=== PATIENT | female | born 1960 | race Caucasian/White ===

== ENCOUNTER → 2023-09-01 14:45 | Outpatient (REF) | payer OTHER, SELFPAY | LOC: HWRAD 14:45 | PROVIDERS: ATTENDING PHYSICIAN Nurse Practitioner | DX: M54.50 Low back pain, unspecified (principal) | CPT/HCPCS: 72110 ==

== ENCOUNTER → 2023-09-08 10:58 | Outpatient (REF) | payer OTHER, SELFPAY | LOC: HWRAD 10:58 | PROVIDERS: ATTENDING PHYSICIAN Nurse Practitioner | DX: K52.9 Noninfective gastroenteritis and colitis, unspecified (principal) | CPT/HCPCS: 74018 ==

== ENCOUNTER 2023-09-09 19:41 | Inpatient (IN) | payer OTHER, SELFPAY ==
[2023-09-09 15:03] VITALS: BP 100/70
--- NOTE | 2023-09-09 15:25 | ED.GENMED ---
History of Present Illness
General
Chief Complaint: Abdominal Symptoms
Source: patient
Exam Limitations: none
Time Seen by Provider: 09/09/23 15:06
Travel History
Have you had any contact with someone who has COVID-19?: No
Do you have any symptoms of coronavirus? Fever > 100 degrees, chills, cough, shortness of breath, sore throat, loss of taste or smell, muscle aches, or headache?: No
History of Present Illness
History of Present Illness:
63 year old female presents with 3-4 days of mid and left abdominal pain with vomiting. No change in bowel movements. No chest pain or shortness of breath. The pain is made worse with eating. She has a prior history of cholecystectomy. She
denies any dark or tarry stools. No known sick contacts. She does not drink alcohol regularly. She does not use NSAIDs regularly. She drinks a cup or 2 of coffee daily. She was thought to have gastritis by her family doctor. Symptoms are not
getting better
Past History
Past History
ED Past Medical History: Hypothyroidism and Psychiatric
ED Past Surgical History: Cholecystectomy, and Other (hernia surgeries/)
Patient has exhibited threatening behavior?: No
PSI?: No
Social History
Tobacco: Non-smoker
Alcohol: Occasional
Personal:
Living: with family
Phy Exam
Physical Exam
Physical Exam:
General: Well-appearing female no acute respiratory distress
HEENT: Normocephalic atraumatic
Heart: Regular rate and rhythm no murmurs
Lungs: Clear to auscultation bilaterally no wheezing
Abdomen: Soft tender to the mid and left mid abdomen. No guarding rebound normal bowel sounds negative Velasco sign no costovertebral angle tenderness.
Extremities: No cyanosis
Course
Orders/Labs/Results
Orders:
Orders
09/09/23 15:23
0.9% Sodium Chloride 1000 ml [Nss] 1,000 ml IV BOLUS
Ondansetron Injectable [Zofran] 4 mg IV NOW STA
09/09/23 15:25
CT Abd/pelvis W Iv Cont Urgent
Comment:
Reason For Exam: abdominal pain
09/09/23 15:35
Complete Blood Count/With Diff Urgent
Comprehensive Metabolic Panel Urgent
Lipase Urgent
09/09/23 16:24
Urinalysis Reflex To Culture Urgent
Date Specimen was Collected: 09/09/23
Time Specimen was Collected: 16:22
Urine Microscopic Reflex Cult Urgent
Urine Culture Urgent
BENJA Source: U
Specimen Description:
Date Specimen was Collected: 09/09/23
Time Specimen was Collected: 16:22
09/09/23 18:25
CefTRIAXone [Rocephin] 1,000 mg IV NOW STA
Famotidine [Pepcid] 20 mg IV NOW STA
Ondansetron Injectable [Zofran] 4 mg IV NOW STA
Abnormal Lab Results
09/09/23 09/09/23
15:35 16:24
WBC 17.4 H 10^3/uL
(4.8-10.8)
RBC 5.49 H 10^6/uL
(4.20-5.40)
Hgb 16.1 H g/dL
(12.0-16.0)
Abs Immat Gran (auto) 0.1 H 10^3/uL
(0-0.05)
Absolute Neuts (auto) 14.2 H 10^3/uL
(1.4-6.5)
Absolute Monos (auto) 1.3 H 10^3/uL
(0.1-0.6)
Neutrophils % 81.7 H %
(42.2-75.2)
Lymphocytes % 9.8 L %
(20.5-51.1)
Sodium 131 L mmol/L
(135-145)
BUN 20 H mg/dl
(7-17)
Glucose 140 H mg/dl
(70-99)
Urine Ketones 3+ A
(Negative)
Ur Occult Blood Reflex 4+ A
(Negative)
Urine Nitrite (Reflex) Positive A
(Negative)
Urine Bilirubin 1+ A
(Negative)
Leukocyte Esterase Rfl 1+ A
(Negative)
Urine Bacteria (Reflex) Many A
(Negative)
Urine Albumin (Reflex) 1+ A
(Neg - Trace)
09/09/23 15:35
09/09/23 15:35
Vital Signs
Initial and Last Documented VS:
Initial Vital Signs
Temp Pulse Resp BP Pulse Ox
99.2 F 100 16 100/70 100
09/09/23 15:03 09/09/23 15:03 09/09/23 15:03 09/09/23 15:03 09/09/23 15:03
Last Documented Vital Signs
Temp Pulse Resp BP Pulse Ox
99.2 F 100 16 100/70 100
09/09/23 15:03 09/09/23 15:03 09/09/23 15:03 09/09/23 15:03 09/09/23 15:03
MDM/Problems Addressed
Differential Diagnosis Includes:
Abdominal pain with vomiting differential could include gastritis versus viral illness. She is slightly tender to the left abdomen. Consider diverticulitis. Check lipase for pancreatitis. Will check labs treat symptoms CT pending
*Critical Care Note
Total Time (30-74mins, 75-104mins- exclusive of procedures): Not Applicable
Update Note
Update Note:
White blood cell count was 17,000. CT scan shows no obvious acute finding. Urinalysis nitrite positive with bacteria and white blood cells. Suspect underlying UTI. Pepcid given. H2 blockers, has an allergy but this is an unknown allergy.
Patient states she took Pepcid not too long ago without any adverse reaction. Will start Rocephin. Patient having difficulty tolerating p.o. not a great candidate for discharge home will admit
ED Attending Note
-
Portions of this chart may have been created with voice recognition software.� Occasional wrong word or��sound alike� substitutions may have occurred due to the inherent limitations of voice recognition software.
Discharge Plan
Departure
Patient Disposition: Admit
Date of Disposition: 09/09/23
Time of Disposition: 18:28
Admit to: Med/Surg
Presentation/result/management discussed w/ accepting MD/DO: Hospitalist
Discharge Problem:
UTI (urinary tract infection)
Prescriptions:
No Action
clonazepam 0.5 MG tablet
0.5 mg PO Q6HPRN PRN (Reason: anxiety)
citalopram 20 MG tablet
40 mg PO DAILY
levothyroxine 50 MCG tablet
50 mcg PO DAILY
cephalexin 250 MG/5 ML suspension for reconstitution
10 ml PO QID
ondansetron 4 MG tablet,disintegrating
4 mg PO Q8 Qty: 10 0RF
Rx Instructions:
nausea
Referrals:
Qi Villegas CRNP [Family Provider] -
Interventions
Interventions:
*Risk Screen - Suicide Last Done: 09/09/23 15:38
*General Assessment Last Done: 09/09/23 15:38
*Neglect/Abuse Screening Last Done: 09/09/23 15:38
*ED COVID-19 Vaccine History Last Done: 09/09/23 15:03
YX-Llfiac-Opzqaxutic Assessment Last Done: 09/09/23 15:38
[2023-09-09] MEDS: NSS 1000 IV ×2 (15:35→20:55)
[2023-09-09] MEDS: ZOFRAN 4 MG IV ×2 (15:35→18:32)
[2023-09-09 15:37] VITALS: BMI 38.0
[2023-09-09 15:52] LABS: % Basophils 0.5 % (0-2); % Immature Granulocytes 0.4 % (0-0.5); % Lymphocytes 9.8 % (20.5-51.1); % Monocytes 7.6 % (1.7-9.3); % Neutrophils 81.7 % (42.2-75.2); Absolute Basophils 0.1 10^3/uL (0-0.2); Absolute Immature Granulocytes 0.1 10^3/uL (0-0.05); Absolute Lymphocytes 1.7 10^3/uL (1.2-3.4); Absolute Monocytes 1.3 10^3/uL (0.1-0.6); Absolute Neutrophils 14.2 10^3/uL (1.4-6.5); Hematocrit 46.4 % (37.0-47.0); Hemoglobin 16.1 g/dL (12.0-16.0); Mean Corp Hgb Conc. 34.7 g/dL (33.0-37.0); Mean Corpuscular Hgb 29.3 pg (27.0-31.0); Mean Corpuscular Volume 84.5 fL (81.0-99.0); Mean Platelet Volume 10.4 fL (7.4-10.4); Nucleated Red Blood Cells % 0 %; Platelet Count 269 10^3/uL (130-400); Red Blood Cell Count 5.49 10^6/uL (4.20-5.40); White Blood Cell Count 17.4 10^3/uL (4.8-10.8)
[2023-09-09 16:03] LABS: ALT (SGPT) 29 U/L (0-35); AST (SGOT) 34 U/L (14-36); Albumin 4.2 g/dl (3.5-5.0); Alkaline Phosphatase 112 U/L (38-126); Blood Urea Nitrogen 20 mg/dl (7-17); Calcium 9.6 mg/dl (8.4-10.2); Carbon Dioxide 25 mmol/L (22-30); Chloride 98 mmol/L (98-107); Estimated Creatinine Clearance 97 ml/min; Glucose 140 mg/dl (70-99); Lipase 202 U/L (23-300); Potassium 3.6 mmol/L (3.5-5.1); Sodium 131 mmol/L (135-145); Total Bilirubin 1.2 mg/dl (0.2-1.3); Total Protein 7.1 g/dl (6.3-8.2); eGFR > 60.00
[2023-09-09 16:37] LABS: Urine Albumin 1+ (Neg - Trace); Urine Bilirubin 1+ (Negative); Urine Character Very Cloudy (Clear); Urine Color Yellow; Urine Glucose Negative (Negative); Urine Ketone 3+ (Negative); Urine Leukocyte 1+ (Negative); Urine Nitrite Positive (Negative); Urine Occult Blood 4+ (Negative); Urine Specific Gravity 1.025 (<1.030); Urine Urobilinogen 1+ (Neg - 1+)
[2023-09-09 16:45] LABS: Urine Bacteria Many (Negative); Urine Red Blood Cell 0-2 /HPF (0-2)
[2023-09-09] MEDS: PEPCID 20 MG IV (18:32)
[2023-09-09] MEDS: ROCEPHIN 1000 MG IV (18:32)
--- NOTE | 2023-09-09 18:32 | HPS.HSE ---
Addendum entered and electronically signed by Juana Garcia DO 09/09/23 19:55:
I saw and examined the patient.
The DRIVER LICENSE AGENT's note was reviewed and I agree with the note.
Subjective
63 yo F with PMH/SHx Hypothyroidism, Depression, Remote Abdominoplasty/Cholecystectomy/C-sectionx2/Hysterectomy presents to ER with c/o LLQ and Left Flank/Bank Pain. She reports 2 weeks ago bending forward and spraining her back R>L Hip. Started on
muscle relaxer and medrol with initial improvement. Wed Night however developped Nausea and dry heaving with worsening left flank/bank pain. Tmax 102.2 at on Wednesday. Denies recent UTIs or recent abx. +Chills. Denies dizziness/LH, Cp, palps,
wheezing, sob, dysuria, calf or leg pain/swelling.
ER course: Pt presents HR 100, T 99.2, other V.S.S. WBC 17.4K, Na 131, BUN/Cr 20/0.7, Glu 140. LFTs wnl, Lipase 202, UA 6-10 WBC, 1+ LE, +Nitrite, +Many bact. S/P Rocephin, 20mg IV Pepcid, 2LNS Bolus, and 4mg IV zofranx2.
Physical Exam
General: Mild Discomfort, AAOX3, Following commands
Neck: Negative JVD
Heart: Normal S1,S2 no S3 or S4 or murmur or gallops
Lungs: CTA b/l, negative wheezes/rales/rhonchi
Abd: Positive BS, Nondistended. +TTP LLQ, Left Flank.
MSK: no midline back tenderness.
Ext: Negative cyanosis/clubbing/edema
Neuro: nonfocal
Assessment and Plan
Abdominal Pain
- Likely 2/2 UTI, see plan below.
- LFTs wnl. Lipase 202, will repeat for tomorrow.
- CT abdomen pelvis with Cannot exclude small hiatal hernia. Sigmoid diverticulosis.Unremarkable appendix. No intestinal obstruction or free air.Small left lobe hepatic cyst simple cyst again seen. Small splenic cyst seen on prior study, no longer
identified.Subcentimeter low-attenuation left renal lesion too small to characterize.Prior cholecystectomy.
- Prn analgesics, Prn Antiemetics, IVF
- Will trial full liquids and ADAT
UTI - Tmax 102.2 at home. 99.2 on admission. WBC 17.4K. Leukocytosis may be confounded by recent steroids (now on hold). Continue rocephin. Follow up UCx. Monitor abdominal exams.
Hyponatremia - Mild. Likely hypoosmotic hypovolemic etiology in setting of dec po intake and dehydration. Continue NS @ 80cc/hr and trend, goal 6-8meq/24hr. Also mild pseudhyponatremia component 2/2 hyperglycemia.
Hypothyroidism - stable on synthroid. Consider checking TSH if hyponatremia unimproved.
Depression - stable on zoloft.
PPx - Lovenox
Code Status: Full Code
Original Note:
Family Physician
-
Family Physician: CARRIE Rob
Chief Complaint
-
abdominal pain
nausea, vomiting
History of Present Illness
63 year old with PMH for hypothyroidism presented to us with constant mid abdominal pain radiating to left flank associated with nausea and vomiting since Wednesday night. patient not tolerating any oral intake. vomiting bile. evaluated by family, who
recommended rest. denied any diarrhea. stated fever of 102 at home which broke by itself. stated GOMES. denied dizzy or syncopal episode. denied chest pain, sob. denied dysuria or hematuria.
CT abdomen pelvis negative. positive UA. initiated on iv ceftriaxone. admitting for further management
she was on medrol pack for back pain, she stopped taking last Wednesday due to abdominal pain, n,v,.
Medical History
Past Medical History
Past Medical History: Reports Other
Additional Past Medical History:
hypothyroidism
Past Surgical History: Reports Other
Additional Past Surgical History:
cholecystectomy
c section
hernia surgery
Tummy Tuck
Social History
Tobacco: Non-smoker
Alcohol: Occasional
Drug: None
Personal:
Living: With Family
Employment: Employed
Family History
Family History: Not pertinent
Allergies / Home Medications
Allergies reflects when Allergies were last updated in [facility].
Home Medications with original date entered in [facility]
Allergy/Medication List:
Allergies
Allergy/AdvReac Type Severity Reaction Status Date / Time
codeine Allergy Unknown Verified 09/09/23 15:05
cortisone Allergy Unknown Verified 09/09/23 15:05
dimenhydrinate Allergy Unknown Verified 09/09/23 15:05
erythromycin base Allergy Unknown Verified 09/09/23 15:05
Histamine H2 Inhibitors Allergy Unknown Verified 09/09/23 15:05
latex Allergy Unknown Verified 09/09/23 15:05
penicillin G Allergy Unknown Verified 09/09/23 15:05
Penicillins Allergy Unknown Verified 09/09/23 15:05
Sulfa (Sulfonamide Allergy Unknown Verified 09/09/23 15:05
Antibiotics)
sulfamethoxazole Allergy Unknown Verified 09/09/23 15:05
tetracycline Allergy Unknown Verified 09/09/23 15:05
trimethoprim Allergy Unknown Verified 09/09/23 15:05
[id number] - Not Allergy Unknown Uncoded 09/09/23 15:05
Converted 7. See Text.
Review of Systems
-
Constitutional: Reports No Symptoms
EENT: Reports No Symptoms
Respiratory: Reports No Symptoms
Cardiac: Reports No Symptoms
Abdomen/GI: Reports Abdominal Pain, Nausea and Vomiting
: Reports No Symptoms
Musculoskeletal: Reports No Symptoms
Skin: Reports No Symptoms
Neurological: Reports No Symptoms
Endocrine: Reports No Symptoms
Hematologic/Lymphatic: Reports No Symptoms
Psych: Reports No Symptoms
Physical Exam
Vital Signs
Vital Signs
Temp Pulse Resp BP Pulse Ox
99.2 F 100 16 100/70 100
09/09/23 15:03 09/09/23 15:03 09/09/23 15:03 09/09/23 15:03 09/09/23 15:03
Physical Exam
General: Well Developed, Well Nourished and No Apparent Distress
HEENT: NormoCephalic, Moist mucous membranes and Atraumatic
Respiratory: Clear
Cardiac: S1/S2 and Regular Rhythm; No Murmur or Rub
GI: Soft, Non Tender, Non Distended and Normal Bowel Sounds; No Organomegaly
Rectal: Deferred by Provider
Musculoskeletal: No Clubbing, No Cyanosis and No Edema
Skin: No Rash
Neuro: AO x 3 and Nonfocal/grossly intact
Psych: Calm
Laboratory Results
-
09/09/23 15:35
09/09/23 15:35
Laboratory Results
Total Bilirubin 1.2 mg/dl (0.2-1.3) 09/09/23 15:35
AST 34 U/L (14-36) 09/09/23 15:35
ALT 29 U/L (0-35) 09/09/23 15:35
Alkaline Phosphatase 112 U/L (38-126) 09/09/23 15:35
Lipase 202 U/L (23-300) 09/09/23 15:35
Data Reviewed
-
CT Scan: Report Reviewed by me
Lab Data: Labs Reviewed by me
Impression/Plan
-
#abdominal pain associated with n/v likely urinary tract infection
-wbc 17.4
-CT abdomen pelvis with Cannot exclude small hiatal hernia.Sigmoid diverticulosis.Unremarkable appendix. No intestinal obstruction or free air.Small left lobe hepatic cyst simple cyst again seen. Small splenic cyst seen on prior study, no longer
identified.Subcentimeter low-attenuation left renal lesion too small to characterize.Prior cholecystectomy.
-iv ceftriaxone
-Tylenol prn for fever
-Toradol prn for pain
-Zofran prn for n/v
-clear liquid diet, advance as tolerated.
#hyponatremia likely dehydration
-na 131
-normal saline continued
-monitor BMP in am
#hypothyroidism
-levothyroxine continued
#depression
-sertraline
#DVT prophylaxis
-Lovenox
#CODE status
-full code
[2023-09-09 18:41] VITALS: BP 132/91
[2023-09-09 20:35] VITALS: BMI 37.7
--- NOTE | 2023-09-09 20:40 | PTCARENOTE ---
Received pt from ED via stretcher. Pt ambulated to bed without assistance. AAOx3, VSS, complains of gas pains throughout abdomen. Oriented to floor, call joyce within reach.
[2023-09-09] MEDS: MYLICON 80 MG PO (21:40)
[2023-09-09] MEDS: TYLENOL 650 MG PO (21:45)
[2023-09-09 23:28] VITALS: BP 146/88
[2023-09-10] MEDS: MYLICON 80 MG PO ×2 (05:15→11:14)
[2023-09-10] MEDS: SYNTHROID 75 MCG PO (05:15)
[2023-09-10] MEDS: TORADOL 15 MG IV ×2 (07:41→23:31)
[2023-09-10 07:55] VITALS: BP 128/78
[2023-09-10 08:19] VITALS: BP 128/78
[2023-09-10] MEDS: ZOLOFT 100 MG PO (08:22)
[2023-09-10 08:31] LABS: Hematocrit 43.7 % (37.0-47.0); Hemoglobin 14.9 g/dL (12.0-16.0); Mean Corp Hgb Conc. 34.1 g/dL (33.0-37.0); Mean Corpuscular Hgb 29.8 pg (27.0-31.0); Mean Corpuscular Volume 87.4 fL (81.0-99.0); Mean Platelet Volume 10.9 fL (7.4-10.4); Platelet Count 253 10^3/uL (130-400); Red Cell Dist. Width 12.2 % (11.5-14.5); White Blood Cell Count 16.5 10^3/uL (4.8-10.8)
[2023-09-10 09:03] LABS: Blood Urea Nitrogen 17 mg/dl (7-17); Calcium 8.8 mg/dl (8.4-10.2); Carbon Dioxide 27 mmol/L (22-30); Chloride 98 mmol/L (98-107); Estimated Creatinine Clearance 113 ml/min; Glucose 92 mg/dl (70-99); Potassium 3.4 mmol/L (3.5-5.1); Sodium 134 mmol/L (135-145); eGFR > 60.00
[2023-09-10 09:18] LABS: Glycohemoglobin (HgbA1c) 6.2 % (4.0-5.6)
[2023-09-10 09:43] LABS: Hepatitis C Antibody Negative (Negative)
[2023-09-10] MEDS: NSS 1000 IV ×2 (11:11→23:29)
[2023-09-10] MEDS: ZOFRAN 4 MG IV (11:12)
--- NOTE | 2023-09-10 15:00 | CM ---
Patient seen at bedside with physician and patient . Patient stated that she lives with in a 2 story home with mother whom she cares for. patient indicated that she has no DME and that her PCP is Dr. Bahena and she is looking for a
list of PCP options to review. patient stated that she uses the [facility] in [place]. Patient plan is for discharge home with no needs at this time. CM will continue to follow for discharge planning needs.
Plan; home with no needs. watch for VN needs; provide list of options for PCP
[2023-09-10] MEDS: TYLENOL ORAL SOLUTION 650 MG PO ×2 (15:36→21:27)
--- NOTE | 2023-09-10 15:46 | W.PN.HOSP.TC ---
Today's Communication/Plan
-
advance diet
cont NSS
repete K
Assessment / Plan
Assessment / Plan
pt is a 63 year old female
abdominal pain associated with n/v likely due to urinary tract infection--follow WBC--cont rocephin--await cultures--CT scan essentially unremarkable BUT not done with oral contrast-Tylenol prn for fever-Toradol prn for pain-Zofran prn for n/v--cont
gasX, add dulcolax
hyponatremia/hypokalemia -- likely dehydration--cont IVF--replete K--sodium better
hypothyroidism--levothyroxine continued
depression--sertraline
DVT prophylaxis--Lovenox
CODE status--full code
Anticipated Discharge: 24 - 48 hours
Subjective/Interval History
-
Date of Service: September 10, 2023
pt c/o no appetite, nausea, gas pains
Objective Data
-
Labs:
Laboratory Results
09/10/23
06:48
WBC 16.5 H
Hgb 14.9
Hct 43.7
Plt Count 253
Sodium 134 L
Potassium 3.4 L
Chloride 98
Carbon Dioxide 27
BUN 17
Creatinine 0.6
Glucose 92
Calcium 8.8
Vital Signs:
max temp for 24 hours
09/09/23
23:28
Temp 99.4 F
Vital Signs
Temp Pulse Resp BP Pulse Ox
99.5 F 90 20 128/78 94
09/10/23 07:55 09/10/23 07:55 09/10/23 07:55 09/10/23 07:55 09/10/23 07:55
Review of Systems
-
All other systems: Reviewed and negative
Abdomen/GI: Reports No Symptoms and Other (gas pains)
Physical Exam
-
General: Well Developed, Well Nourished and No Apparent Distress
HEENT: Normocephalic and Atraumatic
Respiratory: Clear to Auscultation; Negative Wheezes or Rhonchi
Cardiac: Regular Rhythm and S1/S2; Negative Murmur
GI: Soft, Nontender, Normal Bowel Sounds and Distended
Musculoskeletal: No Clubbing, No Cyanosis and No Edema
Neuro: Awake
Psych: Calm
[2023-09-10 15:57] VITALS: BP 133/80
[2023-09-10] MEDS: KCL 40 MEQ PO (17:05)
[2023-09-10] MEDS: LOVENOX 40 MG SC (17:05)
[2023-09-10] MEDS: STERILE WATER FOR INJECTION 10 ML IV (17:06)
[2023-09-10] MEDS: ROCEPHIN 1000 MG IV (17:06)
[2023-09-10] MEDS: DULCOLAX 10 MG RECTAL (18:32)
[2023-09-10] MEDS: MYLICON 160 MG PO (21:27)
[2023-09-10 23:55] VITALS: BP 155/81
[2023-09-11] MEDS: MELATONIN 5 MG PO ×2 (00:43→21:34)
[2023-09-11] MEDS: SYNTHROID 75 MCG PO (06:01)
[2023-09-11 07:39] VITALS: BP 120/63
[2023-09-11 08:36] LABS: Hematocrit 36.2 % (37.0-47.0); Hemoglobin 12.6 g/dL (12.0-16.0); Mean Corp Hgb Conc. 34.8 g/dL (33.0-37.0); Mean Corpuscular Volume 86.2 fL (81.0-99.0); Mean Platelet Volume 10.6 fL (7.4-10.4); Platelet Count 256 10^3/uL (130-400); Red Cell Dist. Width 12.2 % (11.5-14.5); White Blood Cell Count 13.8 10^3/uL (4.8-10.8)
[2023-09-11 08:55] LABS: Blood Urea Nitrogen 13 mg/dl (7-17); Calcium 8.3 mg/dl (8.4-10.2); Carbon Dioxide 29 mmol/L (22-30); Chloride 104 mmol/L (98-107); Estimated Creatinine Clearance 113 ml/min; Glucose 107 mg/dl (70-99); Potassium 3.8 mmol/L (3.5-5.1); Sodium 134 mmol/L (135-145); eGFR > 60.00
[2023-09-11] MEDS: ZOLOFT 100 MG PO (09:55)
[2023-09-11] MEDS: MYLICON 160 MG PO ×2 (10:02→21:34)
--- NOTE | 2023-09-11 11:34 | W.PN.HOSP.TC ---
Today's Communication/Plan
-
renew IVF
OBS series
Assessment / Plan
Assessment / Plan
pt is a 63 year old female
abdominal pain associated with n/v likely due to urinary tract infection--follow WBC--cont rocephin--cultures negative--CT scan essentially unremarkable BUT not done with oral contrast--Tylenol prn for fever--Toradol prn for pain--Zofran prn for
n/v--cont gasX, add dulcolax--check OBS series
hyponatremia/hypokalemia -- likely dehydration--cont IVF--replete K--sodium better
hypothyroidism--levothyroxine continued
depression--sertraline
DVT prophylaxis--Lovenox
CODE status--full code
Anticipated Discharge: 24 - 48 hours
Subjective/Interval History
-
Date of Service: September 11, 2023
pt not eating much, still bloated and passing minimal gas
Objective Data
-
Labs:
Laboratory Results
09/11/23
08:12
WBC 13.8 H
Hgb 12.6
Hct 36.2 L
Plt Count 256
Sodium 134 L
Potassium 3.8
Chloride 104
Carbon Dioxide 29
BUN 13
Creatinine 0.6
Glucose 107 H
Calcium 8.3 L
Vital Signs:
max temp for 24 hours
09/10/23
15:57
Temp 100.6 F H
Vital Signs
Temp Pulse Resp BP Pulse Ox
99.9 F 80 16 120/63 95
09/11/23 07:39 09/11/23 07:39 09/11/23 07:39 09/11/23 07:39 09/11/23 07:39
Review of Systems
-
All other systems: Reviewed and negative
Physical Exam
-
General: Well Developed, Well Nourished and No Apparent Distress
HEENT: Normocephalic and Atraumatic
Respiratory: Clear to Auscultation; Negative Wheezes or Rhonchi
Cardiac: Regular Rhythm and S1/S2; Negative Murmur
GI: Soft, Nontender and Distended; Negative Normal Bowel Sounds (hypoactive)
Musculoskeletal: No Clubbing, No Cyanosis and No Edema
Skin: Warm
Neuro: Awake
[2023-09-11] MEDS: NSS 1000 IV ×2 (11:39→20:07)
[2023-09-11] MEDS: TYLENOL ORAL SOLUTION 650 MG PO ×2 (12:55→20:07)
[2023-09-11 15:00] VITALS: BP 136/91
[2023-09-11] MEDS: DULCOLAX 10 MG RECTAL (18:22)
[2023-09-11] MEDS: LOVENOX 40 MG SC (18:24)
[2023-09-11] MEDS: ROCEPHIN 1000 MG IV (18:24)
[2023-09-11] MEDS: STERILE WATER FOR INJECTION 10 ML IV (18:24)
[2023-09-11 23:55] VITALS: BP 126/70
[2023-09-12] MEDS: SYNTHROID 75 MCG PO (05:59)
[2023-09-12 06:20] LABS: Hematocrit 36.8 % (37.0-47.0); Hemoglobin 12.7 g/dL (12.0-16.0); Mean Corp Hgb Conc. 34.5 g/dL (33.0-37.0); Mean Corpuscular Hgb 29.8 pg (27.0-31.0); Mean Corpuscular Volume 86.4 fL (81.0-99.0); Mean Platelet Volume 10.5 fL (7.4-10.4); Platelet Count 277 10^3/uL (130-400); Red Blood Cell Count 4.26 10^6/uL (4.20-5.40); Red Cell Dist. Width 12.3 % (11.5-14.5); White Blood Cell Count 11.6 10^3/uL (4.8-10.8)
[2023-09-12 06:38] LABS: ALT (SGPT) 58 U/L (0-35); AST (SGOT) 49 U/L (14-36); Alkaline Phosphatase 129 U/L (38-126); Blood Urea Nitrogen 7 mg/dl (7-17); Calcium 8.4 mg/dl (8.4-10.2); Carbon Dioxide 30 mmol/L (22-30); Chloride 103 mmol/L (98-107); Estimated Creatinine Clearance 113 ml/min; Glucose 102 mg/dl (70-99); Magnesium 2.1 mg/dl (1.6-2.3); Potassium 3.6 mmol/L (3.5-5.1); Sodium 134 mmol/L (135-145); Total Bilirubin 0.7 mg/dl (0.2-1.3); Total Protein 5.7 g/dl (6.3-8.2); eGFR > 60.00
[2023-09-12 08:20] VITALS: BP 129/73
[2023-09-12] MEDS: ZOLOFT 100 MG PO (08:42)
[2023-09-12] MEDS: TYLENOL ORAL SOLUTION 650 MG PO ×2 (08:43→21:27)
--- NOTE | 2023-09-12 14:06 | W.PN.HOSP.TC ---
Today's Communication/Plan
-
consult GI
stop IVF--pt is tolerating some intake
Assessment / Plan
Assessment / Plan
pt is a 63 year old female
abdominal pain associated with n/v likely due to urinary tract infection?--follow WBC--cont rocephin--cultures negative--CT scan essentially unremarkable BUT not done with oral contrast--Tylenol prn for fever--Toradol prn for pain--Zofran prn for
n/v--cont gasX, added dulcolax suppos x 2-- OBS series neg--consult GI--LFTs slightly increased--consider US?
hyponatremia/hypokalemia -- likely dehydration--stop IVF--replete K--sodium better
hypothyroidism--levothyroxine continued
depression--sertraline
DVT prophylaxis--Lovenox
CODE status--full code
Anticipated Discharge: 24 - 48 hours
Subjective/Interval History
-
Date of Service: September 12, 2023
pt still not feeling any better
Objective Data
-
Labs:
Laboratory Results
09/12/23
05:59
WBC 11.6 H
Hgb 12.7
Hct 36.8 L
Plt Count 277
Sodium 134 L
Potassium 3.6
Chloride 103
Carbon Dioxide 30
BUN 7
Creatinine 0.6
Glucose 102 H
Calcium 8.4
Total Bilirubin 0.7
AST 49 H
ALT 58 H
Alkaline Phosphatase 129 H
Vital Signs:
max temp for 24 hours
09/11/23
19:50
Temp 100.5 F H
Vital Signs
Temp Pulse Resp BP Pulse Ox
100.4 F H 82 16 129/73 95
09/12/23 08:20 09/12/23 08:20 02/18/24 08:20 09/12/23 08:20 09/12/23 09:30
I&O
09/11/23 09/12/23 09/13/23
06:59 06:59 06:59
Intake Total 1720 / 1720 357 / 357
Balance 1720 / 1720 357 / 357
Review of Systems
-
All other systems: Reviewed and negative
Physical Exam
-
General: Well Developed, Well Nourished, No Apparent Distress and Obese
HEENT: Normocephalic and Atraumatic
Respiratory: Clear to Auscultation; Negative Wheezes or Rhonchi
Cardiac: Regular Rhythm and S1/S2; Negative Murmur
GI: Soft and Tender (Left side of abdomen--no guarding or rebound)
Musculoskeletal: No Clubbing, No Cyanosis and No Edema
Skin: Warm
Neuro: Awake and Alert
Psych: Calm
[2023-09-12 15:19] VITALS: BP 121/79
--- NOTE | 2023-09-12 15:24 | CON.GI ---
Consultation
-
Date/Time Consultation Requested: 09/12/2023, 2pm
Date/Time Consultation Performed: 09/12/2023, 3:30 pm
Requesting Provider: Dr. Hopkins
Performing Provider: Dr. Goldstein
Reason for Consultation: nausea
Medical History
Chief Complaint / HPI
Chief Complaint: pain, n/v
History of Present Illness:
63 yo F pmh hypothyroidism p/w pain mid abd radiating to left flank with n/v since Wednesday. No diarrhea. Fever 102 at home also found to have leukocytosis and hypoNa thought related to infection. Admitted 09/09.
CT a/p neg, positive UA being treated with ceftriaxone. Initial Xray with stool burden repeat did not show it.
Reviewing daily notes has been c/o ongoing nausea, bloat, minimal gas. Has been taking simethicone bid; has tried 2 suppositories. Feels about 30% improved. Last BM was Wednesday (6 days ago). No further vomiting since Sat.
No HB/dysphagia.
Records show she had a colon [address] Robledo with hemorrhoids, tics and polyps. Path all normal on polyps. Per patient had a Cologuard since then that was negative.
EGD 2009 Dr. So which was normal. Path normal.
Past Medical History
Past Medical History: Hypothyroidism, Psychiatric (depression) and Other (benign brain tumor)
Past Surgical History: Cholecystectomy, and Other (hernia, tummy tuck)
Social History
Tobacco: Non-Smoker
Alcohol: Occasional
Drug: None
Family History
Family History: Reviewed & Not Pertinent
Allergies / Home Medications
Allergy/AdvReac Type Severity Reaction Status Date / Time
codeine Allergy Unknown Verified 09/09/23 15:05
cortisone Allergy Unknown Verified 09/09/23 15:05
dimenhydrinate Allergy Unknown Verified 09/09/23 20:28
erythromycin base Allergy Unknown Verified 09/09/23 15:05
Histamine H2 Inhibitors Allergy Unknown Verified 09/09/23 20:28
latex Allergy Unknown Verified 09/09/23 15:05
penicillin G Allergy Unknown Verified 09/09/23 20:28
Penicillins Allergy Unknown Verified 09/09/23 20:28
Sulfa (Sulfonamide Allergy Unknown Verified 09/09/23 20:28
Antibiotics)
sulfamethoxazole Allergy Unknown Verified 09/09/23 20:28
tetracycline Allergy Unknown Verified 09/09/23 15:05
trimethoprim Allergy Unknown Verified 09/09/23 20:28
Medication Instructions Recorded
Black Elderberry 2 gummy PO DAILY Supplement 09/09/23
cyanocobalamin (vitamin B-12) 2,500 mcg sublingual DAILY 09/09/23
2,500 mcg sublingual tablet Supplement
levothyroxine 75 mcg tablet 75 mcg PO DAILY Thyroid 09/09/23
meloxicam 15 mg tablet 15 mg PO DAILY PRN mild pain 09/09/23
methylprednisolone 4 mg tablets in 0 mg PO PER PKG DIR 09/09/23
a dose pack Anti-Inflammatory
sertraline 100 mg tablet 100 mg PO DAILY Depression 09/09/23
vitamin D3-vitamin K2 2 gummy PO DAILY Supplement 09/09/23
Review of Systems
-
All other systems: A 12 pt ROS was Negative except as stated above in HPI
Vital Signs
Temp Pulse Resp BP Pulse Ox
98.9 F 69 18 121/79 97
09/12/23 15:19 09/12/23 15:19 09/12/23 15:19 09/12/23 15:19 09/12/23 15:19
Physical Exam
Exam
General: Well Developed
HEENT: Normocephalic
Respiratory: Clear
Cardiac: S1/S2
GI: Non Tender and Non Distended
Musculoskeletal: No Clubbing
Skin: Warm
Neuro: AO x 3
Hematologic/Lymphatic: No Lymphadenopathy
Psych: Calm
Results
WBC 11.6 10^3/uL (4.8-10.8) H 09/12/23 05:59
Hgb 12.7 g/dL (12.0-16.0) 09/12/23 05:59
Hct 36.8 % (37.0-47.0) L 09/12/23 05:59
MCV 86.4 fL (81.0-99.0) 09/12/23 05:59
Plt Count 277 10^3/uL (130-400) 09/12/23 05:59
Absolute Neuts (auto) 14.2 10^3/uL (1.4-6.5) H 09/09/23 15:35
Sodium 134 mmol/L (135-145) L 09/12/23 05:59
Potassium 3.6 mmol/L (3.5-5.1) 09/12/23 05:59
Chloride 103 mmol/L (98-107) 09/12/23 05:59
Carbon Dioxide 30 mmol/L (22-30) 09/12/23 05:59
BUN 7 mg/dl (7-17) 09/12/23 05:59
Creatinine 0.6 mg/dL (0.6-1.0) 09/12/23 05:59
Calcium 8.4 mg/dl (8.4-10.2) 09/12/23 05:59
Total Bilirubin 0.7 mg/dl (0.2-1.3) 09/12/23 05:59
AST 49 U/L (14-36) H 09/12/23 05:59
ALT 58 U/L (0-35) H 09/12/23 05:59
Alkaline Phosphatase 129 U/L (38-126) H 09/12/23 05:59
Lipase 202 U/L (23-300) 09/09/23 15:35
Hepatitis C Antibody Negative (Negative) 09/10/23 06:48
Diagnostic Image Results:
Prior GI Procedures:
EGD:
Colonoscopy:
Assessment / Plan
-
63 yo F pmh as above here with nausea, vomiting, pain found to have UTI. Last BM 6 days ago.
Studies reviewed:
Xray 09/08: moderate amt of stool
CT 09/09: cannot exxclude small HH, sig tics, left hepatic simple cyst, left renal lesion too small to characterize, prior CCY
Xray 09/11: nonosbtructive gas pattern
Ongoing nausea and pain suspect related to constipation and UTI. Diff dx: gastroparesis, less likely PUD normal Hb.
Recommendations:
- Gave one time dose of miralax 68 g (mag citrate issue with sulfa allergy) - will see if improvement with BM
- If does not improve with BM can consider GES (has not gotten opioids) vs EGD
- Mild LFT abnormality should have repeat in 3-6 mo if persists, outpatient GI follow up
-
-
Thank you for consultation and allowing me to participate in the patient's care. Please call the incident response consultant GI physician during the after hours with any questions or concerns.
[2023-09-12] MEDS: NSS IV (15:48)
[2023-09-12] MEDS: MIRALAX 68 GRAMS PO (17:01)
[2023-09-12] MEDS: LOVENOX 40 MG SC (17:53)
[2023-09-12] MEDS: ROCEPHIN 1000 MG IV (17:55)
[2023-09-12] MEDS: STERILE WATER FOR INJECTION 10 ML IV (18:06)
[2023-09-12] MEDS: MYLICON 160 MG PO (21:37)
[2023-09-12] MEDS: MELATONIN 5 MG PO (21:37)
[2023-09-12 22:51] VITALS: BP 142/73
[2023-09-13] MEDS: SYNTHROID 75 MCG PO (06:16)
[2023-09-13 07:00] VITALS: BP 124/81
[2023-09-13 07:22] LABS: Hematocrit 35.6 % (37.0-47.0); Hemoglobin 12.2 g/dL (12.0-16.0); Mean Corp Hgb Conc. 34.3 g/dL (33.0-37.0); Mean Corpuscular Volume 87.5 fL (81.0-99.0); Mean Platelet Volume 10.4 fL (7.4-10.4); Platelet Count 301 10^3/uL (130-400); Red Blood Cell Count 4.07 10^6/uL (4.20-5.40); Red Cell Dist. Width 12.2 % (11.5-14.5); White Blood Cell Count 11.2 10^3/uL (4.8-10.8)
--- NOTE | 2023-09-13 08:12 | W.PN.HOSP.TC ---
Today's Communication/Plan
-
add falgyl
blood cs/covid check
LUQ pain? adding Protonix, stop Toradol
Assessment / Plan
Assessment / Plan
Abdominal pain
Nausea/vomiting
-Abdominal pain better, no vomiting episode overnight
-CT a/p w/o oral contrast did not show any acute issues
-Continue on symptomatic care with Tylenol
-Patient has a lot of bloating issues , on simethicone
-Discontinue further Toradol, maintain on p.o. Protonix for any gastritis component.
-GI evaluated and patient given MiraLAX x4 doses,
Fever episode
Possible UTI
-UA showing nitrite negative bacteriuria no pyuria
-Urine culture negative till date.
-Patient on Rocephin and continue to spike fever. adding flagyl to cover anearobe/GI source.
-Check blood culture and COVID
Hyponatremia
Hypokalemia
-replaced K and monitor
-Na 134 yesterday, BMP pending today. monitor.
hypothyroidism
-levothyroxine continued
Depression
-sertraline
DVT prophylaxis--Lovenox
CODE status--full code
Anticipated Discharge: Within 24 hours
Subjective/Interval History
-
Date of Service: September 13, 2023
Resting comfortably in bed
Abdominal pain is better, appetite remains poor
No bowel movement overnight
Objective Data
-
Labs:
Laboratory Results
09/13/23
06:53
WBC 11.2 H
Hgb 12.2
Hct 35.6 L
Plt Count 301
Sodium Pending
Potassium Pending
Chloride Pending
Carbon Dioxide Pending
BUN Pending
Creatinine Pending
Glucose Pending
Calcium Pending
Total Bilirubin Pending
AST Pending
ALT Pending
Alkaline Phosphatase Pending
Vital Signs:
Vital Signs
Temp Pulse Resp BP Pulse Ox
99.8 F 79 18 142/73 94
09/12/23 22:51 09/12/23 22:51 09/12/23 22:51 09/12/23 22:51 09/12/23 22:51
I&O
09/12/23 09/13/23 09/14/23
06:59 06:59 06:59
Intake Total 1720 / 1720 957 / 957
Balance 1720 / 1720 957 / 957
Review of Systems
-
Respiratory: Reports No Symptoms
Cardiac: Reports No Symptoms
Abdomen/GI: Reports Abdominal Pain; Denies Nausea or Vomiting
Physical Exam
-
General: Obese
HEENT: Negative Oxygen
GI: Soft and Tender (Minimal in LUQ); Negative Distended
Musculoskeletal: No Edema
Neuro: Awake, Alert, Oriented and No Motor Deficits
Psych: Calm
[2023-09-13] MEDS: ZOLOFT 100 MG PO (08:45)
[2023-09-13] MEDS: FLAGYL 500 MG PO ×2 (08:45→17:44)
[2023-09-13] MEDS: PROTONIX 40 MG PO (08:46)
[2023-09-13 08:49] LABS: ALT (SGPT) 46 U/L (0-35); AST (SGOT) 34 U/L (14-36); Albumin 2.8 g/dl (3.5-5.0); Alkaline Phosphatase 126 U/L (38-126); Blood Urea Nitrogen 5 mg/dl (7-17); Calcium 8.2 mg/dl (8.4-10.2); Carbon Dioxide 30 mmol/L (22-30); Chloride 103 mmol/L (98-107); Estimated Creatinine Clearance 113 ml/min; Glucose 101 mg/dl (70-99); Magnesium 2.2 mg/dl (1.6-2.3); Potassium 3.6 mmol/L (3.5-5.1); Sodium 135 mmol/L (135-145); Total Bilirubin 0.6 mg/dl (0.2-1.3); Total Protein 5.3 g/dl (6.3-8.2); eGFR > 60.00
[2023-09-13 09:18] LABS: COVID-19 Antigen Negative (Negative)
--- NOTE | 2023-09-13 11:20 | W.PN.GI.CBS2 ---
Addendum entered and electronically signed by Kushal Goldstein MD 09/13/23 15:42:
I saw and examined the patient.
The TRACK INSPECTING SUPERVISOR or PA's note was reviewed and I agree with the note.
Comment:63 yo F pmh as above here with nausea, vomiting, pain found to have UTI.� Last BM 6 days ago.
Ongoing nausea and pain suspect related to constipation and UTI.� Diff dx: gastroparesis, less likely PUD normal Hb.
Now s/p miralax with some movement, improvement in nausea and pain.
Recommendations:
- Give another dose of miralax
- Mild LFT abnormality should have repeat in 3-6 mo if persists, outpatient GI follow up
- GI will sign off please call with ?s
Original Note:
Today's Communication / Plan
-
give further miralax 34 grams today as passed some stool today
trend LFT's as improving
EGD vs GE scan if symptoms continue
will follow
Assessment / Plan
-
63 yo F pmh as above here with nausea, vomiting, pain found to have UTI. Last BM 6 days ago.
-possible UTI- but cx neg
-nausea
-constipation
-mild LFT elevation
Studies reviewed:
Xray 09/08: moderate amt of stool
CT 09/09: cannot exclude small HH, sig tics, left hepatic simple cyst, left renal lesion too small to characterize, prior CCY
Xray 09/11: nonobstructive gas pattern
PLAN:
Ongoing nausea and pain suspect related to constipation and possible UTI but cx neg Diff dx: gastroparesis, less likely PUD normal Hb.
2 stool this am with some loose stool but feeling like need to pass more stool
will give Miralax 34 grams today
offered enema but she declines as starting to pass stool
cont regular diet
if any persistent symptoms consider GES (has not gotten opioids) vs EGD
- Mild LFT abnormality but improving may be UTI related should have repeat in 3-6 mo if persists outpatient GI follow up if they do not normalize will repeat in AM
Subjective
Subjective
Date of Service: September 13, 2023
on regular diet 2 looser stools today but feeling like need to pass more stool
Objective
Data Reviewed
Laboratory Data:
Laboratory Results
09/13/23 06:53
09/13/23 06:53
Laboratory Results
Magnesium 2.2 mg/dl (1.6-2.3) 09/13/23 06:53
Total Bilirubin 0.6 mg/dl (0.2-1.3) 09/13/23 06:53
AST 34 U/L (14-36) 09/13/23 06:53
ALT 46 U/L (0-35) H 09/13/23 06:53
Alkaline Phosphatase 126 U/L (38-126) 09/13/23 06:53
Lipase 202 U/L (23-300) 09/09/23 15:35
Vital Signs and I&O:
Vital Signs
Temp Pulse Resp BP Pulse Ox
99.3 F 73 18 124/81 92
09/13/23 07:00 09/13/23 07:00 09/13/23 07:00 09/13/23 07:00 09/13/23 07:00
I&O
09/12/23 09/13/23 09/14/23
06:59 06:59 06:59
Intake Total 1720 / 1720 957 / 957
Balance 1720 / 1720 957 / 957
Physical Exam
Physical Exam
HEENT: Anicteric and Moist mucous membranes
Cardiology: Normal Sinus Rhythm
Pulmonary: Clear
GI: Soft, Non Distended and Non Tender
Extremities: No Edema
Neuro: Non Focal
[2023-09-13] MEDS: MIRALAX 34 GRAMS PO (11:51)
--- NOTE | 2023-09-13 14:04 | PN.CDI ---
CDI
- -
CDI:
Physician Documentation Request
Admit Date: 09/09/23 19:41
Dear Doctor Antoni ,
Please review the following and provide your response in the progress notes.
Clinical Indicators:
Pt admitted with abdominal pain N/V possible UTI
Documented per H&P, ' ..Tmax 102.2 at on Wednesday...Pt presents HR 100, T 99.2...2LNS Bolus,... Likely 2/2 UTI...'
On admission Tmax 100.6, HR 100, WBC 17.4/Pt on Rocephin and Flagyl added for possible GI source
Please clarify which of the following most accurately describes the status of the patient's infection:
Sepsis-POA
- Systemic manifestations of infection, with 2 or more SIRS criteria which include:
- Fever >100.4 degrees F or hypothermia < 96.8 degrees F
- Leukocytosis - WBC > 12,000 or leukopenia - WBC < 4,000 or > 10% bands
- Tachycardia > 90 beats per minute
- Tachypnea - RR > 20 breaths per minute or PaCO2 , 32mmHg
UTI/GI source only , Without Systemic Illness
Other
Use of terms such as suspected, likely, concern for, or probable (associated with a specific diagnosis that is being evaluated, monitored, or treated as if it exists) are acceptable and can be coded in the inpatient setting, when documented at the
time of discharge.
Thank you,
Kenyatta Martinez RN
CDI Specialist
[facility]
Please use your independent medical judgment in providing your response.
[2023-09-13 15:00] VITALS: BP 123/78
[2023-09-13] MEDS: MYLICON 160 MG PO ×2 (15:36→20:49)
[2023-09-13] MEDS: TYLENOL ORAL SOLUTION 650 MG PO (17:43)
[2023-09-13] MEDS: LOVENOX 40 MG SC (17:44)
[2023-09-13] MEDS: STERILE WATER FOR INJECTION 10 ML IV (17:44)
[2023-09-13] MEDS: ROCEPHIN 1000 MG IV (17:44)
[2023-09-13] MEDS: MELATONIN 5 MG PO (21:46)
[2023-09-13] MEDS: FLAGYL PO (23:39)
[2023-09-13 23:42] VITALS: BP 135/82
[2023-09-14] MEDS: SYNTHROID 75 MCG PO (05:44)
[2023-09-14 07:00] VITALS: BP 136/82
[2023-09-14 08:15] LABS: Hematocrit 35.4 % (37.0-47.0); Hemoglobin 12.2 g/dL (12.0-16.0); Mean Corp Hgb Conc. 34.5 g/dL (33.0-37.0); Mean Corpuscular Hgb 29.5 pg (27.0-31.0); Mean Corpuscular Volume 85.7 fL (81.0-99.0); Mean Platelet Volume 10.5 fL (7.4-10.4); Platelet Count 354 10^3/uL (130-400); Red Blood Cell Count 4.13 10^6/uL (4.20-5.40); Red Cell Dist. Width 12.3 % (11.5-14.5); White Blood Cell Count 10.9 10^3/uL (4.8-10.8)
[2023-09-14] MEDS: PROTONIX 40 MG PO (08:20)
[2023-09-14] MEDS: ZOLOFT 100 MG PO (08:20)
[2023-09-14] MEDS: FLAGYL 500 MG PO (08:20)
--- NOTE | 2023-09-14 10:13 | W.PN.HOSP.TC ---
Addendum entered and electronically signed by Denis Corrales MD 09/14/23 15:22:
Sepsis ruled out.
Original Note:
Today's Communication/Plan
-
Await ID eval
possible discharge today vs tomorrow based on clinical course
Assessment / Plan
Assessment / Plan
Abdominal pain
Nausea/vomiting - resolved
-Abdominal pain better, no vomiting episode overnight
-CT a/p w/o oral contrast did not show any acute issues
-Continue on symptomatic care with Tylenol
-Patient has a lot of bloating issues , on simethicone
-Discontinue further Toradol, maintain on p.o. Protonix for any gastritis component.
-GI evaluated and patient given MiraLAX x4 doses,
Fever episode
Possible UTI
-UA showing nitrite negative bacteriuria no pyuria
-Urine culture negative till date.
-COVID neg, Blood culture negative for 24hrs.
-Clinically no concern of VTE
-States have mesh? in place, CT a/p images reviewed and no abd hardware in place.
-ID evaluation requested for further assessment, continues to spike borderline fever.
-Discontinue further Rocephin and Flagyl
Hyponatremia -resolved
Hypokalemia
-replaced K and monitor
-Na normalized
hypothyroidism
-levothyroxine continued
Depression
-sertraline
DVT prophylaxis--Lovenox
CODE status--full code
Anticipated Discharge: Within 24 hours
Subjective/Interval History
-
Date of Service: September 14, 2023
patient continues to spike fever overnight
minimal abd pain
no n/v
Objective Data
-
Labs:
Laboratory Results
09/14/23
07:00
WBC 10.9 H
Hgb 12.2
Hct 35.4 L
Plt Count 354
Vital Signs:
Vital Signs
Temp Pulse Resp BP Pulse Ox
99.1 F 78 18 136/82 94
09/14/23 07:00 09/14/23 07:00 09/14/23 07:00 09/14/23 07:00 09/14/23 07:00
I&O
09/13/23 09/14/23 09/15/23
06:59 06:59 06:59
Intake Total 957 / 957 1290 / 1290
Balance 957 / 957 1290 / 1290
Review of Systems
-
Respiratory: Reports No Symptoms
Cardiac: Reports No Symptoms
Abdomen/GI: Reports Abdominal Pain; Denies Nausea or Vomiting
Physical Exam
-
General: Obese
HEENT: Negative Oxygen
Musculoskeletal: No Edema
Neuro: Awake, Alert, Oriented and No Motor Deficits
Psych: Calm
[2023-09-14] MEDS: MYLICON 160 MG PO (12:29)
--- NOTE | 2023-09-14 13:31 | CON.ID ---
Consultation
-
Date/Time Consultation Requested: 09/14/2023 1024
Date/Time Consultation Performed: 09/14/2023 1315
Requesting Provider: Dr. Corrales
Performing Provider: Dr. Rodriguez
Reason for Consultation: Leukocytosis
Chief Complaint / Past History
History of Present Illness
Deana Allan is a 63-year-old female being evaluated at the request of Dr. Corrales in regards to leukocytosis. History is obtained from chart review, along with patient interview.
The patient has a significant past medical history only for hypothyroidism, and has had a cholecystectomy in the past.
She reports that she was in his usual state of health until approximately 09/05 when she developed abdominal discomfort with associated vomiting and multiple episodes of stooling (although no diarrhea). She reports the pain was 10 out of 10 and
across her lower abdomen. She denies any chest pain or shortness of breath. Ultimately she came to the hospital because of ongoing abdominal discomfort.
No history of eating out at local restaurants. She denies any fever at home. No history of travel. She has pet dog.
At admission she was placed on ceftriaxone. She is currently feeling improved, and Infectious Disease is asked to comment upon discharge antibiotics. She denies any history of dysuria or hematuria.
Past History
Additional Past Medical History:
Hypothyroidism
Benign brain tumor
Additional Past Surgical History:
Cholecystectomy
Hernia repair x 5
Allergy History:
codeine Allergy (Verified 09/09/23 15:05)
Unknown
cortisone Allergy (Verified 09/09/23 15:05)
Unknown
dimenhydrinate Allergy (Verified 09/09/23 20:28)
Unknown
erythromycin base Allergy (Verified 09/09/23 15:05)
Unknown
Histamine H2 Inhibitors Allergy (Verified 09/09/23 20:28)
Unknown
latex Allergy (Verified 09/09/23 15:05)
Unknown
penicillin G Allergy (Verified 09/09/23 20:28)
Unknown
Penicillins Allergy (Verified 09/09/23 20:28)
Unknown
Sulfa (Sulfonamide Antibiotics) Allergy (Verified 09/09/23 20:28)
Unknown
sulfamethoxazole Allergy (Verified 09/09/23 20:28)
Unknown
tetracycline Allergy (Verified 09/09/23 15:05)
Unknown
trimethoprim Allergy (Verified 09/09/23 20:28)
Unknown
Medications Reviewed: Yes
Social History
Tobacco: Non-Smoker
Alcohol: Occasional
Drug: None
Personal:
Living: With Family
Employment: Retired
Review of Systems
Vital Signs
Temp Pulse Resp BP Pulse Ox
99.1 F 78 18 136/82 94
09/14/23 07:00 09/14/23 07:00 09/14/23 07:00 09/14/23 07:00 09/14/23 08:00
Physical Exam
Physical Exam
Constitutional: No Acute Distress, Comfortable, Non-toxic and Obese
Head: Normocephalic
Eyes: Pupils Equal, Pupils Round, No Conjunctival Hemorrhage and Sclera Anicteric
Cardiovascular: S1/S2; Negative S3/S4
Pulmonary: Clear; Negative Wheezes, Rales or Rhonchi
Gastrointestinal: Soft, Tender (mild), Non Distended, Normal Bowel Sounds, No Rebound and No Guarding
Genito-Urinary: Negative Faustin
Extremities: Negative Edema, Cyanosis or Erythema
Neurological: Awake and Alert
Psychological: Calm
Lab / Diagnostic Study Results
09/14/23 07:00
09/13/23 06:53
Abs Immat Gran (auto) 0.1 10^3/uL (0-0.05) H 09/09/23 15:35
Absolute Neuts (auto) 14.2 10^3/uL (1.4-6.5) H 09/09/23 15:35
Absolute Lymphs (auto) 1.7 10^3/uL (1.2-3.4) 09/09/23 15:35
Absolute Monos (auto) 1.3 10^3/uL (0.1-0.6) H 09/09/23 15:35
Absolute Basos (auto) 0.1 10^3/uL (0-0.2) 09/09/23 15:35
Immature Gran % 0.4 % (0-0.5) 09/09/23 15:35
Neutrophils % 81.7 % (42.2-75.2) H 09/09/23 15:35
Lymphocytes % 9.8 % (20.5-51.1) L 09/09/23 15:35
Monocytes % 7.6 % (1.7-9.3) 09/09/23 15:35
Eosinophils % 0.0 % (0-6) 09/09/23 15:35
Basophils % 0.5 % (0-2) 09/09/23 15:35
Microbiology Results
Micro:
09/13/23 08:27 Blood Culture - Preliminary
Blood/Venous No Growth in 24 hours- Final report to follow
09/13/23 07:48 Blood Culture - Preliminary
Blood/Venous No Growth in 24 hours- Final report to follow
09/09/23 16:24 Urine Culture - Final
Urine
09/11/2023 CT abdomen/pelvis shows a nonobstructive bowel gas pattern. No dilated loops of small bowel or air-fluid levels. Cholecystectomy clips project over the right upper quadrant. Please see full dictation for additional detail.
Assessment / Plan
Intermittent low-grade fever
Leukocytosis; improved
Abdominal discomfort; improved
Recommendations:
Etiology of symptomatology not immediately clear.
Cultures negative thus far.
If planning on discharge, may consider an additional 3 to 5 days of cefdinir with outpatient follow-up of CBC by PCP.
Care Review
Plan reviewed with: Physician (Hospitalist)
--- NOTE | 2023-09-14 18:07 | W.DCSUMMARY ---
Discharge Summary
Discharge Data
Date of Admission: 09/09/23
Date of Discharge: 09/14/23
-
Pending Results: No
Hospital Course
Discharging Physician : Dr Denis Corrales
Disposition : Home
Primary care physician : Dr Qi Villegas
Principal Discharge diagnosis :
Right flank/abdominal pain
Fever episode suspected from urinary tract infection
Nausea and vomiting
Electrolyte imbalance
Chronic Discharge diagnosis :
Hypothyroidism
Depression
Hospital Course :
63-year-old female with above-mentioned past medical history came to ER for having new onset of left lower quadrant/flank pain and ongoing fever. Patient have recent episode of muscle strain causing right hip pain and has been on steroids and
muscle relaxants. ER evaluation showing patient having minimal pyuria and bacteriuria urine with concern of new urinary tract infection. CT abdomen pelvis was done which did not show any acute issues. Patient was started on IV Rocephin and urine
cultures were collected. Later on urine culture showed no growth. Despite being on antibiotic patient continued to spike fever, COVID/blood cultures were checked and were negative. No other clear source for fever episode. ID was involved in care
and recommended to patient to finish short course of oral Omnicef therapy at discharge.
Patient left flank pain initially was thought to be related to UTI although patient started later having bloating/nausea problem as well. GI evaluated and felt patient symptoms possibly related to constipation. Patient was provided laxative
therapy. Question of possible dyspepsia and patient started on Protonix and simethicone as well. Over next 48 hours patient symptoms improved with symptomatic care only. GI recommended for patient to follow-up in office in 4 to 6 weeks.
Important imaging findings :
None
Procedure findings :
None
Discharge Plan
-
Patient Disposition: Home (Routine Discharge)
Discharge Diagnosis/Procedures: Abdominal pain/Nausea/vomiting
Condition: Fair
Diet: Regular
Activity: As tolerated
Driving Restrictions: No driving
Bathing Restrictions: OK to Shower
Referrals:
Kushal Goldstein MD [Active] - in four to six weeks
Qi Villegas CRNP [Family Provider] - in one week
Prescriptions:
New
pantoprazole 40 mg Tablet,Delayed Release (Dr/Ec)
40 mg PO DAILY Qty: 30 0RF
simethicone 80 mg Tablet,Chewable
160 mg PO QIDPRN PRN (Reason: gas pain) Qty: 30 0RF
cefdinir 300 mg capsule
300 mg PO BID Qty: 6 0RF
Continued
cyanocobalamin (vitamin B-12) 2,500 mcg Tablet, Sublingual
2,500 mcg SUBLINGUAL DAILY
sertraline 100 mg Tablet
100 mg PO DAILY
levothyroxine 75 mcg Tablet
75 mcg PO DAILY
Black Elderberry
2 gummy PO DAILY
Patient Comments:
09/09/2023, 400 mg.
vitamin D3-vitamin K2
2 gummy PO DAILY
Discontinued
meloxicam 15 mg Tablet
15 mg PO DAILY PRN (Reason: mild pain)
methylprednisolone 4 mg Tablets,Dose Pack
0 mg PO PER PKG DIR
Patient Comments:
09/09/2023. pt. skippped last two doses. Pt. filled this med. on 09/01/2023 for 6 days.
Discharge Orders:
Discharge Patient (As Directed); Ordered 09/14/23
Ordered By: Denis Corrales
Discharge Date and Time
Discharge Date/Time: 09/14/23 15:00
== END 2023-09-14 15:00 | disposition home or self-care (01) | DRG 690 ==
LOC: 4 EAST ACU 19:41
PROVIDERS: Internal Medicine; Physician Assistant; Registered Nurse; ADMITTING PHYSICIAN Internal Medicine; ATTENDING PHYSICIAN Hospitalist; CONSULT PHYSICIAN Internal Medicine Gastroenterology; CONSULT PHYSICIAN Internal Medicine Infectious Disease; EMERGENCY PHYSICIAN Emergency Medicine; FAMILY PHYSICIAN Nurse Practitioner
DX: N39.0 Urinary tract infection, site not specified (principal); E87.1 Hypo-osmolality and hyponatremia; E03.9 Hypothyroidism, unspecified; F32.A Depression, unspecified; E86.0 Dehydration; R10.9 Unspecified abdominal pain; Z11.52 Encounter for screening for COVID-19
CPT/HCPCS: 74022; 74177; 80048; 80053; 81003; 81015; 83036; 83690; 83735; 85025; 85027; 86803; 87040; 87086; 87811; 93005; 96361; 96374; 96375; 96376; 99285; Q9967

== ENCOUNTER → 2023-11-08 07:57 | Outpatient (REF) | payer OTHER, SELFPAY | LOC: RAD 07:57 | PROVIDERS: ATTENDING PHYSICIAN Nurse Practitioner; FAMILY PHYSICIAN Nurse Practitioner; REFERRING PHYSICIAN Internal Medicine Gastroenterology | DX: R11.0 Nausea (principal); R68.81 Early satiety | CPT/HCPCS: 78264; A9541 ==

== ENCOUNTER → 2023-11-22 06:22 | Day surgery (SDC) | payer OTHER, SELFPAY | LOC: GI 06:22 | PROVIDERS: ATTENDING PHYSICIAN Internal Medicine Gastroenterology | DX: R63.4 Abnormal weight loss (principal); R68.81 Early satiety; K44.9 Diaphragmatic hernia without obstruction or gangrene; K31.89 Other diseases of stomach and duodenum; K31.7 Polyp of stomach and duodenum; K29.50 Unspecified chronic gastritis without bleeding | CPT/HCPCS: 43239; 88305; 88342 ==

== ENCOUNTER → 2024-04-11 15:25 | Outpatient (REF) | payer MEDICARE, OTHER, SELFPAY | LOC: HWRAD 15:25 | PROVIDERS: ATTENDING PHYSICIAN Nurse Practitioner | DX: M25.561 Pain in right knee (principal) | CPT/HCPCS: 73564 ==

== ENCOUNTER → 2024-09-05 12:12 | Outpatient (REF) | payer MEDICARE, OTHER, SELFPAY | LOC: HWWDC 12:12 | PROVIDERS: ATTENDING PHYSICIAN Internal Medicine | DX: Z12.31 Encounter for screening mammogram for malignant neoplasm of breast (principal) | CPT/HCPCS: 77063; 77067 ==

== ENCOUNTER → 2024-11-08 09:37 | Outpatient (REF) | payer MEDICARE, OTHER, SELFPAY | LOC: HWRAD 09:37 | PROVIDERS: ATTENDING PHYSICIAN Internal Medicine Gastroenterology; FAMILY PHYSICIAN Internal Medicine | DX: R10.9 Unspecified abdominal pain (principal) | CPT/HCPCS: 76700 ==

== ENCOUNTER → 2025-03-27 11:20 | Outpatient (REF) | payer MEDICARE, OTHER, SELFPAY | LOC: HWRAD 11:20 | PROVIDERS: ATTENDING PHYSICIAN Internal Medicine | DX: S99.922A Unspecified injury of left foot, initial encounter (principal) | CPT/HCPCS: 73660 ==

== ENCOUNTER → 2025-04-17 13:03 | Outpatient (REF) | payer MEDICARE, OTHER, SELFPAY | LOC: HWRAD 13:03 | PROVIDERS: ATTENDING PHYSICIAN Podiatrist Foot & Ankle Surgery; FAMILY PHYSICIAN Internal Medicine | DX: S92.515S Nondisplaced fracture of proximal phalanx of left lesser toe(s), sequela (principal) | CPT/HCPCS: 73630 ==